=== PATIENT | female | born 1960 | race Two or more races ===

== ENCOUNTER 2018-09-18 14:37 | Inpatient (IN) | payer MEDICARE, MEDICAID ==
[~2018-09-18] VITALS: Ht 154.9 cm; Wt 70.8 kg
[2018-09-18 16:00] LABS: BASOPHILS % 0.8 % (0.0-2.0); EOSINOPHILS % 1.7 % (0.0-5.0); HEMATOCRIT. 37.5 % (36.0-48.0); HEMOGLOBIN. 13.2 g/dL (12.0-16.0); LYMPHOCYTES % 35.9 % (20.0-50.0); MEAN CORPUSCULAR HEMOGLOBIN 31.7 pg (28.0-32.0); MEAN CORPUSCULAR VOLUME 89.7 fL (81.0-99.0); MEAN PLATELET VOLUME 7.9 fl (7.4-10.4); MONOCYTES % 9.7 % (2.0-8.0); NEUTROPHILS % 51.9 % (40.0-76.0); PLATELET 237 x1000/uL (130-400); RED BLOOD CELL COUNT 4.18 mill/uL (4.2-5.4); RED CELL DISTRIBUTION WIDTH 13.1 % (11.6-14.6)
[2018-09-18 16:09] LABS: CHLORIDE 107 mEq/L (98-107)
[2018-09-18 16:12] LABS: D-DIMER 0.28 mg/L FEU (<0.50); PARTIAL THROMBOPLASTIN TIME 26.1 sec (23.4-31.0); PROTHROMBIN TIME 10.2 sec (9.6-11.0)
[2018-09-18] MEDS ORDERED: ASPIRIN 325MG EC TABLET PO ONE (18:45)
[2018-09-18 20:36] VITALS: BP_SYST 163; BP_DIAS 72; BP_DIAS 73
[2018-09-18] MEDS ORDERED: NITROGLYCERIN 0.4MG TABLET SL SL PRN (21:30)
[2018-09-18] MEDS ORDERED: LORAZEPAM 0.5MG TABLET PO PRN (21:30)
[2018-09-18] MEDS ORDERED: DOCUSATE SODIUM 100MG CAPSULE PO PRN (21:30)
[2018-09-18] MEDS ORDERED: ZOLPIDEM TARTRATE 5MG TABLET PO PRN (21:30)
[2018-09-18] MEDS ORDERED: IPRATROPIUM/ALBUTEROL 0.5-3(2.5)MG/3ML NEB INH PRN (21:30)
[2018-09-18] MEDS ORDERED: GUAIFENESIN 200MG/10ML SUGAR FREE UDC PO PRN (21:30)
[2018-09-18] MEDS ORDERED: MAGNESIUM/ALUMINUM HYDROXIDE/SIMETHICONE 30ML UDC PO PRN (21:30)
[2018-09-18] MEDS ORDERED: ACETAMINOPHEN 325MG TABLET PO PRN (21:30)
[2018-09-18] MEDS ORDERED: CLONIDINE 0.1MG TABLET PO PRN (21:30)
[2018-09-18] MEDS ORDERED: TRAMADOL 50MG TABLET PO PRN (21:46)
[2018-09-18] MEDS ORDERED: KETOROLAC 15MG/ML VIAL IV PRN (21:47)
[2018-09-18] MEDS ORDERED: ENOXAPARIN 40MG/0.4ML SYR SUBCUT NR (22:01)
[2018-09-18 22:16] LABS: CREATINE KINASE 115 IU/L (26-192)
[2018-09-18 22:17] LABS: CREATINE KINASE MB FRACTION 1.1 ng/mL (0.5-3.6)
[2018-09-19] VITALS: BP 117/55
[2018-09-19 04:00] VITALS: BP 113/68
[2018-09-19 06:57] LABS: LDL CHOLESTEROL 129 mg/dL (5-100)
[2018-09-19 06:58] LABS: HDL CHOLESTEROL 56 mg/dL (40-59)
[2018-09-19 06:59] LABS: CREATINE KINASE 95 IU/L (26-192)
[2018-09-19 07:00] LABS: CREATINE KINASE MB FRACTION < 1.0 ng/mL (0.5-3.6)
[2018-09-19 08:00] VITALS: BP 108/56
[2018-09-19] MEDS: ONDANSETRON HCL 4MG/2ML INJ IV PRN ×2 (09:06→13:19)
[2018-09-19] MEDS: FAMOTIDINE 20MG TABLET PO SCH ×2 (09:07→21:52)
[2018-09-19] MEDS: ASPIRIN 325MG EC TABLET PO SCH (09:07)
[2018-09-19 10:43] LABS: T4 FREE 0.87 ng/dL (0.76-1.46)
[2018-09-19 12:00] VITALS: BP 113/59
[2018-09-19] MEDS ORDERED: BUTALBITAL/ACETAMINOPHEN/CAFFEINE 50/325/40MG TABLET PO PRN (13:00)
[2018-09-19 16:00] LABS: CREATINE KINASE 86 IU/L (26-192)
[2018-09-19 16:01] LABS: CREATINE KINASE MB FRACTION < 1.0 ng/mL (0.5-3.6)
[2018-09-19 17:00] VITALS: BP_SYST 108; BP_SYST 116; BP_SYST 118; BP_DIAS 44; BP_DIAS 62
[2018-09-19] MEDS ORDERED: ENOXAPARIN 40MG/0.4ML SYR SUBCUT SCH (18:00)
[2018-09-19 18:51] LABS: CLARITY URINE CLEAR (CLEAR); COLOR URINE YELLOW (YELLOW); KETONES URINE NEGATIVE (NEGATIVE); LEUKOCYTE ESTERASE URINE NEGATIVE (NEGATIVE); NITRITE URINE NEGATIVE (NEGATIVE); OCCULT BLOOD URINE NEGATIVE (NEGATIVE); PROTEIN URINE NEGATIVE (NEGATIVE); SPECIFIC GRAVITY URINE 1.007 (1.005-1.030); UROBILINOGEN URINE 0.2 E.U./dL (0.2-1.0)
[2018-09-19 20:00] VITALS: BP_SYST 110; BP_SYST 122; BP_SYST 124; BP_DIAS 54; BP_DIAS 65; BP_DIAS 67
[2018-09-20] VITALS: BP 133/68
[2018-09-20 00:50] LABS: CREATINE KINASE 81 IU/L (26-192)
[2018-09-20 00:51] LABS: CREATINE KINASE MB FRACTION < 1.0 ng/mL (0.5-3.6)
[2018-09-20 04:00] VITALS: BP 97/57
[2018-09-20 07:10] LABS: CREATINE KINASE 80 IU/L (26-192)
[2018-09-20 07:11] LABS: CREATINE KINASE MB FRACTION < 1.0 ng/mL (0.5-3.6)
[2018-09-20] MEDS: ASPIRIN 325MG EC TABLET PO SCH (07:56)
[2018-09-20] MEDS: FAMOTIDINE 20MG TABLET PO SCH (07:57)
[2018-09-20] MEDS ORDERED: BUTA1CAP45 PO (11:20)
[2018-09-20 11:21] VITALS: BP 125/68
[2018-09-20] MEDS ORDERED: ASA5EC MT (11:21)
[2018-09-20] MEDS ORDERED: FAMO-135 MT (11:21)
== END 2018-09-20 12:30 | disposition home health service (06) | DRG 69 ==
LOC: ER 14:37 → 7WST 18:37 → EDBEDREQ 18:43 → ENRESERV 19:39
PROVIDERS: ADMIT Internal Medicine; ATTEND Internal Medicine
DX: G45.9 Transient cerebral ischemic attack, unspecified (principal); B69.0 Cysticercosis of central nervous system; R07.89 Other chest pain; M19.90 Unspecified osteoarthritis, unspecified site; E78.5 Hyperlipidemia, unspecified; I10 Essential (primary) hypertension
CPT/HCPCS: 36415; 70551; 71045; 80061; 82550; 82553; 83036; 83880; 84439; 84443; 84484; 85379; 93005; 93306; 93970; 96374; 97116; 97161; 97166; 99285; J1650; J2405